=== PATIENT | female | born 1935 | race Hispanic/Latino ===

== ENCOUNTER 2019-01-08 07:48 | Observation (INO) | payer MEDICARE, BC ==
[2019-01-08 07:55] VITALS: BMI 22.4
--- NOTE | 2019-01-08 09:37 | ED PDOC ---
Arrival/HPI - General Chief Complaint: Flu-like Symptoms Time Seen by Provider: 01/08/19 07:57 Historian: Patient - History of Present Illness Narrative History of Present Illness (Text): 01/08/19 09:35 83 year old female, with past medical history of anxiety, hypertension, GERD, and pancreatic mass, presents to the Emergency department for evaluation of tremors since yesterday. Patient reports taking 1mg Xanax everyday to help her sleep at night however, she states skipping her dose since yesterday. Patient believes symptoms may be secondary to withdrawal from Xanax, prompting her to present to the ED for evaluation. Patient reports mild difficulty ambulating but denies any other associated somatic complaints. Patient denies any fevers, chills, headache, dizziness, chest pain, shortness of breath, dyspnea on exertion, cough, diaphoresis, abdominal pain, nausea, vomiting, diarrhea, back pain, neck pain, or any other complaints. PMD: Dr. Chambers Time/Duration: 24 hours Symptom Onset: Gradual Symptom Course: Unchanged Activities at Onset: Light Context: Home Past Medical History - Provider Review Nursing Documentation Reviewed: Yes - Infectious Disease Hx of Infectious Diseases: None - Tetanus Immunization Tetanus Immunization: Unknown - Reproductive Menopause: Yes - Cardiac Hx Cardiac Disorders: Yes Hx Hypertension: Yes - Pulmonary Hx Respiratory Disorders: No - Neurological Hx Neurological Disorder: No - HEENT Hx Cataracts: Yes - Renal Hx Renal Disorder: Yes - Endocrine/Metabolic Hx Hypothyroidism: Yes - Hematological/Oncological Hx Cancer: Yes (pancreatic ca tumor removed) - Integumentary Hx Dermatological Disorder: No - Musculoskeletal/Rheumatological Hx Musculoskeletal Disorders: No - Gastrointestinal Hx Gastrointestinal Disorders: Yes Hx Gastroesophageal Reflux: Yes Other/Comment: mass in pancreas - Genitourinary/Gynecological Hx Genitourinary Disorders: No - Psychiatric Hx Psychophysiologic Disorder: Yes Hx Anxiety: Yes Hx Substance Use: No - Surgical History Hx Hysterectomy: Yes Other/Comment: right duct gland removed; pancreatic tumor removed - Anesthesia Hx Anesthesia: Yes Hx Anesthesia Reactions: No Hx Malignant Hyperthermia: No - Suicidal Assessment Feels Threatened In Home Enviroment: No Family/Social History - Physician Review Nursing Documentation Reviewed: Yes Family/Social History: Unknown Family HX Smoking Status: Never Smoked Hx Alcohol Use: No Hx Substance Use: No Allergies/Home Meds Allergies/Adverse Reactions: Allergies codeine Allergy (Verified 01/08/19 07:51) PAIN Home Medications: Home Meds Medication Instructions Recorded Confirmed Levothyroxine Sodium 150 mcg PO DAILY 12/01/12 01/08/19 [Levothyroxine] Alprazolam [Xanax] 0.5 mg PO PRN PRN 01/08/19 01/08/19 Lisinopril [Zestril] 20 mg PO BID 01/08/19 01/08/19 Ranitidine HCl [Heartburn Relief] 150 mg PO DAILY 01/08/19 01/08/19 Review of Systems - Physician Review All systems were reviewed & negative as marked: Yes - Review of Systems Constitutional: Other (Tremors). absent: Fevers Eyes: absent: Vision Changes Respiratory: absent: SOB, Cough Cardiovascular: absent: Chest Pain Gastrointestinal: absent: Abdominal Pain, Diarrhea, Nausea, Vomiting Genitourinary Female: absent: Dysuria, Urine Output Changes Musculoskeletal: absent: Back Pain, Neck Pain Skin: absent: Rash Neurological: absent: Headache, Dizziness, Focal Weakness Endocrine: absent: Diaphoresis Physical Exam - Physical Exam Narrative Physical Exam (Text): 01/08/19 09:42 Gen: VS reviewed, alert, well developed, well nourished, nontoxic, mild distress. Temor at rest and tremor with intention. ENT: normal pharynx. Eye: EOMI, PERRL. Neck: no JVD, supple, no adenopathy. CV: regular rate, regular rhythm, no rubs, no murmur, no gallops, S1, S2, pulses equal and strong. Pulm: no distress, clear to auscultation, no wheeze, no rhonchi, breath sounds equal, no rales. Abd: soft, nontender, no guarding, no rebound, no rigidity, normal bowel sounds. Ext: no edema. Skin: good color, no rash, no cyanosis. Psych: responds appropriately to questions, normal affect. Neuro: oriented x 3, CN2-12 intact grossly, motor intact, sensation intact. Normal finger to nose. Normal heel to young. Normal gait. Vital Signs Reviewed: Yes Vital Signs Temp Pulse Resp BP Pulse Ox 01/08/19 08:23 98 F 71 18 141/78 100 Temperature: Afebrile Blood Pressure: Normal Pulse: Regular Respiratory Rate: Normal Appearance: Positive for: Well-Appearing, Non-Toxic, Comfortable Pain Distress: Mild Mental Status: Positive for: Alert and Oriented X 3 Medical Decision Making ED Course and Treatment: 01/08/19 09:35 Impression: 83 year old female presents to the ED for evaluation of tremors. Plan: -- CT of Head -- EKG -- Labs -- Reassess and disposition Prior Visits: Notes and results from previous visits were reviewed. Progress Notes: 01/08/19 11:[address] chambers, will admit to his service. patient to be admitted for new tremor and incidental finding of meningioma. case discussed with dr. oh, no acute intervention at this time and will see pt in consult. - RAD Interpretation Narrative RAD Interpretations (Text): 01/08/19 11:28 CT head reviewed by radiologist, shows: FINDINGS: HEMORRHAGE: No intracranial hemorrhage. BRAIN: No mass effect or edema. No atrophy or chronic microvascular ischemic changes. VENTRICLES: Unremarkable. No hydrocephalus. CALVARIUM: Unremarkable. PARANASAL SINUSES: Unremarkable as visualized. No significant inflammatory changes. MASTOID AIR CELLS: Unremarkable as visualized. No inflammatory changes. 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 Radiology Orders: 01/08/19 09:35 HEAD W/O CONTRAST [CT] Stat Business Services Manager: Radiologist - EKG Interpretation EKG Interpretation (Text): 01/08/19 07:58 NSR @ 80 bpm, nml QRS, LVH, no acute ST/T wave abnormality. Interpreted by ED Physician: Yes Type: 12 lead EKG - Scribe Statement The provider has reviewed the documentation as recorded by the Scribe Thiago Nguyen. All medical record entries made by the Scribe were at my direction and personally dictated by me. I have reviewed the chart and agree that the record accurately reflects my personal performance of the history, physical exam, medical decision making, and the department course for this patient. I have also personally directed, reviewed, and agree with the discharge instructions and disposition. Disposition/Present on Arrival - Present on Arrival Any Indicators Present on Arrival: No History of DVT/PE: No History of Uncontrolled Diabetes: No Urinary Catheter: No History of Decub. Ulcer: No History Surgical Site Infection Following: None - Disposition Have Diagnosis and Disposition been Completed?: Yes Diagnosis: Tremor Disposition: HOSPITALIZED Disposition Time: 11:34 Patient Plan: Observation Patient Problems: Current Active Problems Problem Status Onset Tremor Acute Condition: STABLE
[2019-01-08 09:54] LABS: BASO # 0.04 K/mm3 (0.0-2.0); BASO % 0.8 % (0.0-3.0); EOS % 0.4 % (1.5-5.0); HEMOGLOBIN 11.7 g/dL (12.0-16.0); LYMPH # 0.6 (1.2-3.4); LYMPH % 12.3 % (22.0-35.0); MEAN CELL VOLUME 93.3 fl (80.0-105.0); MEAN CORPUSCULAR HEMOGLOBIN 30.1 pg (25.0-35.0); MEAN CORPUSCULAR HGB CONC 32.2 g/dl (31.0-37.0); MEAN PLATELET VOLUME 10.3 fl (7.0-11.0); MONO # 0.3 (0.1-0.6); MONO % 5.6 % (1.0-6.0); RBC 3.89 10^6/uL (3.5-6.1); RED CELL DISTRIBUTION WIDTH 13.8 % (11.5-14.5); WHITE BLOOD COUNT 5.2 10^3/uL (4.5-11.0)
[2019-01-08 10:03] LABS: ALB/GLOB RATIO 1.2 (1.1-1.8); CALCIUM 9.4 mg/dL (8.4-10.5)
[2019-01-08 10:36] LABS: BARBITURATES, UR NEGATIVE (NEGATIVE); BENZODIAZEPINES, UR POSITIVE (NEGATIVE); OPIATES, UR NEGATIVE (NEGATIVE); PHENCYCLIDINE, UR NEGATIVE (NEGATIVE)
--- NOTE | 2019-01-08 10:55 | CT ---
Date of service: 01/08/2019 PROCEDURE: CT HEAD WITHOUT CONTRAST. HISTORY: tremor COMPARISON: None available. TECHNIQUE: Axial computed tomography images were obtained through the head/brain without intravenous contrast. Radiation dose: Total exam DLP = 794.68 mGy-cm. This CT exam was performed using one or more of the following dose reduction techniques: Automated exposure control, adjustment of the mA and/or kV according to patient size, and/or use of iterative reconstruction technique. FINDINGS: HEMORRHAGE: No intracranial hemorrhage. BRAIN: No mass effect or edema. No atrophy or chronic microvascular ischemic changes. VENTRICLES: Unremarkable. No hydrocephalus. CALVARIUM: Unremarkable. PARANASAL SINUSES: Unremarkable as visualized. No significant inflammatory changes. MASTOID AIR CELLS: Unremarkable as visualized. No inflammatory changes. 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
--- NOTE | 2019-01-08 16:14 | CARD ---
APPROVED REPORT Date of service: 01/08/2019 EKG Measurement Heart [id number] <Conclusion> Sinus rhythm with premature atrial complexes Possible Left atrial enlargement Left ventricular hypertrophy Cannot rule out Septal infarct, age Old. Abnormal ECG
--- NOTE | 2019-01-08 21:40 | CON ---
DATE: 01/08/2019 HISTORY OF PRESENT ILLNESS: This is an 83-year-old female with past medical history of hypertension, GERD, anxiety, and pancreatic mass, came to the emergency room with essential tremor. The patient take Xanax to go to sleep because of tremor and called to evaluate the patient. CAT scan of the head was done showed calcified meningioma. REVIEW OF SYSTEMS: A 10-point review of systems was noted, only tremor. PHYSICAL EXAMINATION: HEENT: Normocephalic and atraumatic. NECK: Supple. NEUROLOGIC: Alert, awake, and oriented. Cranial nerves II through XII were tested. Pupils reactive. Spontaneous movement of the extremities noted. Deep tendon reflexes 1+. Plantars are downgoing. Sensory appears intact. Cerebellar gait deferred. IMPRESSION AND PLAN: Essential tremor and also calcified meningioma, hypothyroidism, and hypertension. We will add Mysoline 50 mg p.o. daily. Further management after the results of above tests. Jason Figueroa MD
--- NOTE | 2019-01-08 22:27 | HP ---
DATE OF EXAM: 01/08/2019 HISTORY OF PRESENT ILLNESS: The patient is an 83-year-old female admitted through the emergency department on 01/08/2019 complaining of 1-day history of intractable tremors. The patient stated that she missed a dose of Xanax and believes that her symptoms might be due to withdrawal from Xanax. The patient denies any chest pain, shortness of breath, or swelling of the legs. She denies any dyspnea on exertion, cough, fevers, or chills. PAST MEDICAL HISTORY: Includes hypertension, history of degenerative joint disease with spinal stenosis, and history of gastroesophageal reflux disease. PAST SURGICAL HISTORY: Includes adenocarcinoma of the pancreas, status post pancreatic resection. CURRENT MEDICATIONS: Include Xanax 1 mg three times daily, Synthroid 150 mcg daily, lisinopril 20 mg daily, and ranitidine 150 mg twice daily. ALLERGIES: THE PATIENT REPORTS AN ALLERGY TO CODEINE. FAMILY HISTORY: Noncontributory. SOCIAL HISTORY: The patient has no history of alcohol or tobacco abuse. She lives alone and is independent with ADLs and IADLs. REVIEW OF SYSTEMS: The patient denies any abdominal pain. No nausea. No vomiting. No melena. No bright red blood per rectum. No fever, rash, or jaundice. PHYSICAL EXAMINATION: GENERAL: The patient is a well-developed female in no acute distress. VITAL SIGNS: Blood pressure 146/70, pulse 78, temperature 98, and respiratory rate 18. HEENT: Head is normocephalic and atraumatic. Pupils equal, round, and reactive to light. Extraocular movements intact. NECK: Supple with no thyromegaly. No carotid bruit. No adenopathy. LUNGS: Clear. HEART: Regular rate and rhythm. ABDOMEN: Soft and nontender. Bowel sounds are normoactive. EXTREMITIES: Without cyanosis, clubbing or edema. NEUROLOGIC: The patient is awake and oriented x3 without focal sensory or motor deficits. There is no tremor noted. SKIN: Warm and dry. LABORATORY DATA: WBC 5.2, hemoglobin 11.7, and hematocrit 36.3. Sodium 140, potassium 4, chloride 107, CO2 of 23, BUN of 14, creatinine 1.1, and glucose 95. CT scan of the head showed a small calcified meningioma, no bleeds or infarcts were noted. IMPRESSION: 1. Intractable tremor. 2. Hypertension. 3. Anxiety disorder. 4. History of carcinoma of the pancreas, status post resection. 5. Gastroesophageal reflux disease. PLAN: The patient is admitted for observation to the telemetry unit. We will obtain Neurology consultation with Dr. Figueroa. Restart Xanax 1 mg t.i.d. p.r.n. Social work for discharge planning. DAKOTAH Saini MD
[2019-01-09] MEDS ORDERED: Levothyroxine 150 MCG TAB PO SCH (06:00)
[2019-01-09] MEDS ORDERED: Pantoprazole 40 mg EC Tab PO SCH (06:00)
[2019-01-09 06:08] VITALS: O2SAT 98
--- NOTE | 2019-01-09 09:54 | CP.PCM.APN ---
Subjective - Date & Time of Evaluation Date of Evaluation: 01/09/19 Time of Evaluation: 09:00 - Subjective Subjective: pt seenand examined at bedside, pt states she forget when she was admittetd, asking about head ct results, states treors has resolved but she has noticeable hand tremors on exam Review of Systems - Review of Systems All systems: reviewed and no additional remarkable complaints except Objective - Vital Signs/Intake and Output Vital Signs (last 24 hours): Temp Pulse Resp BP Pulse Ox 97.8 F 71 20 133/75 98 01/09/19 06:00 01/09/19 06:00 01/09/19 06:00 01/09/19 06:00 01/09/19 06:00 Intake and Output: 01/09/19 01/09/19 06:59 18:59 Intake Total 720 Balance 720 - Medications Medications: Current Medications Alprazolam (Xanax) 1 mg PO TID PRN; Protocol PRN Reason: Anxiety Last Admin: 01/08/19 21:26 Dose: 1 mg Levothyroxine Sodium (Synthroid) 150 mcg PO 0600 [facility] Last Admin: 01/09/19 05:27 Dose: 150 mcg Lisinopril (Zestril) 20 mg PO BID [facility] Last Admin: 01/08/19 17:07 Dose: 20 mg Pantoprazole Sodium (Protonix Ec Tab) 40 mg PO 0600 [facility] Last Admin: 01/09/19 05:27 Dose: 40 mg Primidone (Mysoline) 50 mg PO HS [facility] Last Admin: 01/08/19 21:27 Dose: 50 mg - Labs Labs: 01/08/19 09:04 01/08/19 09:04 - Constitutional Appears: No Acute Distress - Head Exam Head Exam: NORMAL INSPECTION, NORMOCEPHALIC - Eye Exam Eye Exam: Normal appearance - ENT Exam ENT Exam: Normal Exam - Respiratory Exam Respiratory Exam: Clear to Ausculation Bilateral, NORMAL BREATHING PATTERN - Cardiovascular Exam Cardiovascular Exam: REGULAR RHYTHM, +S1, +S2 - GI/Abdominal Exam GI & Abdominal Exam: Soft, Normal Bowel Sounds - Neurological Exam Neurological Exam: Alert, Awake Additional comments: bilateral hand tremors - Skin Skin Exam: Dry, Intact Assessment and Plan - Assessment and Plan (Free Text) Plan: ITS Impressions Head CT 01/08/19 09:35 IMPRESSION: No acute intracranial findings 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 83 yr old white female with pmh sig for htn, djd, gerd admitted with c/o of tremors pt reports assoxdiation with xanax withdrawal . pt undergoing neuro eval for tremors. 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 Discussed finding with Dr Figueroa - pt placed on primidone 5omg QHS and can follow up with neuro as outpt per Dr Axel Figueroa. BPCI/TIC - BPCIA/TIC Educated pt/family on BPCIA/CIR/Med to Bed Programs: N/A Flyers given, including CMS Beneficiary letter: N/A Pt/family verbalized understanding & agreed to program: N/A
[2019-01-09 12:03] VITALS: BP 134/78; PULSE 82; RESP 18; TEMP 98.1
--- NOTE | 2019-01-12 04:46 | DS ---
HOSPITAL COURSE: The patient is an 83-year-old female admitted through the emergency department on 01/08/2019, complaining of intractable tremors of one day's duration. The patient described this possible withdrawal from Xanax. The patient denied any chest pain, shortness of breath, swelling of the leg. She was seen in consultation by Dr. Figueroa. She had resolution of her symptoms and was discharged to home in stable condition on 01/09/2019. IMPRESSION: 1. Tremor, rule out benzodiazepine withdrawal. 2. Hypertension. 3. Anxiety disorder. 4. History of carcinoma of the pancreas status post resection. 5. Gastroesophageal reflux disease. 6. Hypothyroidism. PLAN: The patient was discharged to home on the following medications; Xanax 1 mg three times daily, Synthroid 150 mcg daily, Lisinopril 20 mg daily, and ranitidine 150 mg twice daily. The patient will follow heart-healthy diet. Activity is ad libitum. She will be follow up as an outpatient in my office within the next 1 to 2 weeks. DAKOTAH Saini MD
== END 2019-01-09 13:15 | disposition home or self-care (01) ==
LOC: ED 07:48 → ERH 11:34 → 2RNO 13:58
PROVIDERS: ADMIT Internal Medicine; ATTEND Internal Medicine
DX: G25.0 Essential tremor (principal); D32.0 Benign neoplasm of cerebral meninges; Z85.07 Personal history of malignant neoplasm of pancreas; I10 Essential (primary) hypertension; E03.9 Hypothyroidism, unspecified; K21.9 Gastro-esophageal reflux disease without esophagitis; F41.9 Anxiety disorder, unspecified; Z79.890 Hormone replacement therapy
CPT/HCPCS: 70450; 80053; 83735; 85025; 93005; 99285; G0378; G0480